=== PATIENT | male | born 1950 | race Caucasian/White ===

== ENCOUNTER 2021-12-27 04:20 | Emergency (ER) | payer OTHER ==
[2021-12-27 04:39] LABS: BASOPHIL 0.9 % (0-2); EOSINOPHIL 5.1 % (0-7); HCT 53.7 % (42.0-52.0); HGB 17.7 g/dl (13.2-18.0); LYMPHOCYTE 22.4 % (15-48); MCH 29.5 pg (25.0-31.0); MCV 89.6 fL (78.0-100.0); MPV 9.7 fL (6.0-9.5); NEUTROPHIL 61.2 % (41-80); NRBC 0; PLT 266 K/uL (150-400); RBC 5.99 M/uL (4.70-6.00); RDW 12.8 % (11.5-14.0); WBC 9.1 K/uL (4.0-10.5)
[2021-12-27 04:49] LABS: INR 0.99 (0.9-1.2); PROTHROMBIN TIME 12.8 SECONDS (11.9-13.9); PTT 25.8 SECONDS (24.9-34.6)
[2021-12-27 05:00] LABS: BILIRUBIN - TOTAL 0.9 mg/dL (0.2-1.0); BUN/CREAT RATIO (CALC) 13.8 RATIO; CREATININE 1.09 mg/dL (0.67-1.17); GLOBULIN (CALCULATION) 3.7 g/dL; POTASSIUM 4.3 mmol/L (3.5-5.1); TOTAL PROTEIN 7.7 g/dL (6.4-8.2)
[2021-12-27 05:49] LABS: CORONAVIRUS 2019 SARS-COV-2 NEGATIVE (NEGATIVE); INFLUENZA A NAA NEGATIVE (NEGATIVE)
== END 2021-12-27 07:45 | disposition home or self-care (01) ==
LOC: FER 04:20
PROVIDERS: Emergency Medicine
DX: R07.89 Other chest pain (principal); I10 Essential (primary) hypertension; Z79.82 Long term (current) use of aspirin; Z79.02 Long term (current) use of antithrombotics/antiplatelets; Z20.822 Contact with and (suspected) exposure to COVID-19; Z28.310 Unvaccinated for COVID-19
CPT/HCPCS: 36415; 71045; 80053; 84484; 85025; 85610; 85730; 93005; U0002